=== PATIENT | male | born 1980 | race Caucasian/White ===

== ENCOUNTER → 2022-04-18 | Day surgery (SDC) | payer OTHER ==
[~2022-04-18] MED LIST: ACETAMINOPHEN 1000 MG/100 ML IV ONE; BUPIVACAINE 0.25% 30ML SDV ONE; BUPROPION XL150 MG PO; DEXAMETHASONE SOD PHOS INJ 4 MG/ML SDV ONE; HYDROCODONE/APAP 10MG-325MG TAB ONE; HYDROMORPHONE 1MG/1ML INJ ONE; KETOROLAC TROMETHAMINE 30 MG/ML VIAL ONE; LAMICTAL100 MG PO; LIDOCAINE HCL 1% LOCAL INJ 20 ML VIAL ONE; LIDOCAINE HCL 2% LOCAL INJ 5 ML SDV VIAL INJ ONE; ONDANSETRON HCL INJ 2MG/ML 2ML 2 MG/ML VIAL ONE; POVIDONE IODINE 0.05% 0.05 % ML PO ONE; PROPOFOL IV EMULSION 10 MG/ML 20 ML VIAL ONE; SEVOFLURANE INHAL SOLN 250 ML PEN BTL ONE; TRAZODONE HCL100 MG PO
[2022-04-18 11:50] VITALS: BP 138/80
== END | disposition home or self-care (01) ==
LOC: OR 06:17
PROVIDERS: ATTEND Orthopaedic Surgery
DX: S83.241A Other tear of medial meniscus, current injury, right knee, initial encounter (principal); S83.281A Other tear of lateral meniscus, current injury, right knee, initial encounter; M22.41 Chondromalacia patellae, right knee; M67.51 Plica syndrome, right knee; M23.41 Loose body in knee, right knee; E66.9 Obesity, unspecified; F31.9 Bipolar disorder, unspecified; F17.290 Nicotine dependence, other tobacco product, uncomplicated; X50.0XXA Overexertion from strenuous movement or load, initial encounter; Y93.B3 Activity, free weights; Y92.39 Other specified sports and athletic area as the place of occurrence of the external cause; Y99.8 Other external cause status; Z01.810 Encounter for preprocedural cardiovascular examination; Z01.812 Encounter for preprocedural laboratory examination; Z20.822 Contact with and (suspected) exposure to COVID-19; Z79.899 Other long term (current) drug therapy
CPT/HCPCS: 0223U; 29882; 36415; 93005; C1713 ×2; J0131; J0690; J1100; J1170; J1885; J2001 ×2; J2405; J2704